=== PATIENT | female | born 1970 | race Caucasian/White ===

== ENCOUNTER → 2018-08-16 | Day surgery (SDC) | payer BC ==
[~2018-08-16] MED LIST: ADAL40PE SQ; HYDR-2145 PO; IV RINGERS,LACTATED 1000ML 1,000 ML IV SCH; LANS30CA PO; LIDOCAINE 2% PF 5 ML VIAL. ONE; NAPR220T70 PO; PROPOFOL 40 ML IV ONE
--- NOTE | 2018-08-16 09:57 | NUR ---
PT REFUSES TEST PRIOR TO FLEX SIGMOIDOSCOPY
[2018-08-16 11:10] VITALS: BP 143/91
--- NOTE | 2018-08-17 13:09 | PATHOLOGY ---
[facility] Accession Number: [id number] . 01 Material submitted: . PART A: colon - RANDOM SIGMOID BIOPSIES. Modifiers: sigmoid PART B: rectum - RECTUM BIOPSIES . 01 Clinical history: . Ulcerative colitis . 02 Diagnosis: A. Colon biopsies, sigmoid colon: - Active chronic colitis, moderate to marked, without granulomas or specific features. . B. Colorectal biopsies, rectum: - Active chronic colitis, moderate to marked, without granulomas or specific features. (JPM:mya; 08/17/2018) QMS/08/17/2018 . 02 Comment: Sections of the random sigmoid colon biopsies and rectal biopsies appear similar and reveal segments of colonic and rectal mucosa showing moderate to marked active chronic inflammation with foci of acute cryptitis and glandular architectural distortion. No viral inclusions are identified. The findings are supportive of the diagnosis of active chronic inflammatory bowel disease and are consistent with ulcerative colitis. There is no dysplasia or evidence of malignancy. (JPM:mya; 08/17/2018) . 02 Electronically signed: . Charli Hdz MD, Pathologist NPI- [id number] . 01 Gross description: . A. Received in formalin labeled "Ailin Jolley, random sigmoid BX's, rule out IBD, CMV," are 7 segments of guzman soft tissue measuring 1.5 x 0.9 x 0.2 cm in aggregate dimensions and ranging from 0.1 to 0.3 cm in maximum dimension. The specimen is submitted entirely in cassette A1. . B. Received in formalin labeled "Ailin Jolley, rectum BX's," are 6 segments of guzman soft tissue measuring 1.1 x 1.0 x 0.2 cm in aggregate dimensions and ranging from 0.1 to 0.3 cm in maximum dimension. The specimen is submitted entirely in cassette B1. (TSD; 08/16/2018) TOB/TOB . 02 Pathologist provided ICD-10: K52.9 . 02 CPT . 500685, [id number] Specimen Comment: A courtesy copy of this report has been sent to Specimen Comment: [phone]. Specimen Comment: Report sent to Performed at: 01 [facility] [address] [place] [address] [address], [place] [id number] MD Drake Moser MD Phone: [phone] Performed at: 02 [facility] [address], [place] [id number] MD Charli Hdz MD Phone: [phone]
--- NOTE | 2018-08-30 09:44 | PDOC1 ---
H & P. HPI: A 48 years old female patient with history of ulcerative colitis involving the erectum and sigmoid colon. Patient has been having frequent bloody bowel movement. Patient was here in endoscopy center (08/16/2018) for flex sig to assess disease activity. ROS: Constitutional: Denies fever, fatigue, chills HEENT: Denies sore throat, vision changes Cardio: Denies chest pain, dyspnea with exertion, syncope, palpitations, edema Pulmonary: Denies shortness of breath, cough, wheezing GI: As per HPI. : Denies dysuria, frequency, urgency, incontinence Skin: Denies new lesions Neuro: Denies weakness, paresthesias FAMILY HX: DM and HTN ( Father and Mother) SOCIAL HX: Denies drinking alcohols, smoking cigarettes or using illicit drugs. SURGICAL HX: N/A MEDS: Reviewed and reconciled Hydrochlorothiazide Lansoprazole Humira ALLERGIES: Reviewed PE: Alert, oriented, no acute distress EOMI, sclera non-icteric Neck supple RRR, no murmur CTAB, no wheezes, crackles or rhonchi Soft, NT, ND, normal bowel sounds, no rebound, guarding. Negative Vieyra's sign. No edema, cyanosis. Normal capillary refill. Calm, cooperative, mood/affect within normal limits ASSESSMENT & PLAN: Patient with history of ulcerative colitis ( rectosigmoiditis). Now, presented with frequent bloody bowel movement. Plan: - Proceed with flexible sigmoidoscopy. ROBERTA WATKINS MD August 30, 2018 09:44
== END | disposition home or self-care (01) ==
LOC: SURG 09:09
PROVIDERS: ATTEND Internal Medicine
DX: K51.90 Ulcerative colitis, unspecified, without complications (principal); K52.89 Other specified noninfective gastroenteritis and colitis; K92.1 Melena; K64.8 Other hemorrhoids; E66.9 Obesity, unspecified; Z88.8 Allergy status to other drugs, medicaments and biological substances; Z87.19 Personal history of other diseases of the digestive system
CPT/HCPCS: 45380; 88305; J2001; J2704